=== PATIENT | male | born 1995 | race Caucasian/White ===

== ENCOUNTER 2020-09-17 22:12 | Emergency (ER) | payer BC, SELFPAY ==
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
[2020-09-17 22:23] VITALS: BP 114/65; PULSE 112; RESP 18; TEMP 36.2; O2SAT 98
[2020-09-17] MEDS: Bupivacaine 0.5% Pres-Free 30 ML VIAL (22:43)
[2020-09-17] MEDS: Bupivacaine 0.25% Pres-Free 30 ML VIAL IJ (22:44)
--- NOTE | 2020-09-17 23:11 | DI.RAD_ITS ---
Exam(s) XR KNEE LT 4V AP,LAT,KEN,PAT EXAM: XR KNEE LT 4V AP,LAT,KEN,PAT CLINICAL HISTORY: significant laceration medially. TECHNIQUE: 2D digital imaging was performed. COMPARISON: No exams were available for comparison FINDINGS: Large area of soft tissue avulsion is seen off the medial aspect knee extending down towards the join t. This laceration is deep and appears to reach the level of the medial femoral condyle. There is n o radiopaque foreign body. There appears to be a small amount of increased joint fluid. There is no fracture. No osteochondral defects. No degenerative changes. Bone density is normal. IMPRESSION: Deep medial laceration which extends down to the level of the medial femoral condyle.. Recommend fol low-up MRI to determine amount of involvement of the medial collateral ligament and other significant soft tissue structures as well as possible bone signal abnormality. DATA REPOSITORY: RADIATION DOSE DELIVERED:
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
[2020-09-17] MEDS: Ibuprofen 600 MG TAB (23:47)
[2020-09-17] MEDS: Acetaminophen 500 MG TAB (23:47)
[2020-09-18] MEDS: Cephalexin 500 MG CAP, 4 CAPS/BTL PO (01:02)
== END 2020-09-18 01:15 | disposition home or self-care (01) ==
PROVIDERS: Emergency Provider Physician Assistant
DX: S81.012A Laceration without foreign body, left knee, initial encounter (principal); W40.8XXA Explosion of other specified explosive materials, initial encounter
CPT/HCPCS: 12004; 99281; 73564

== ENCOUNTER 2020-10-10 08:37 | Emergency (ER) | payer BC, SELFPAY ==
--- NOTE | 2020-10-10 08:45 | ED.GENADUL_ITS ---
Discharge Plan Disposition Patient Disposition: HOME Condition: Stable Discharge Details Clinical Impression: Impacted cerumen of left ear Primary Care Provider: Kristina,Local ED Provider: Jaimee Conley Home Meds and New Rx's Prescriptions: No Action No Known Home Meds RF: 0 Discharge Instructions Instructions: Impactaci?n de Cerumen (ED) Additional Instructions: Use the Debrox drops as directed if you develop any further earwax. You can use safety Q-tips to prevent impaction of earwax in the future. You can also try cotton balls instead of Q-tips. Follow up with your primary care doctor in 1 week as needed. Return to the emergency department with any worsening or new concerning symptoms. Discharge Data Discharge Date/Time-TO BE ENTERED AT DEPARTURE: 10/10/20 09:31 Discharge Physician: Jaimee Conley Medical Decision Making 25yo M presents for decreased hearing in his L ear for the past few days. Cerumen impaction noted to L ear canal, but cerumen appears soft. Minimal cerumen in R ear canal but able to view the TM and appears normal. Nurse flushed the L ear with hydrogen peroxide and water with complete removal of cerumen and TM appears normal. Pt feels much better and good to go home. Advised on proper way of cleaning ears and minimizing cerumen impaction. Advised to f/u with the pcp as needed. Medical Records Medical records reviewed: Yes I reviewed the patient's medical records. HPI General Mode of arrival: ambulatory . Date/Time Provider Initiated Documentation: 10/10/20 08:45 . Limitations to Documentation: no limitations . Information obtained by: patient . HPI Narrative: Pt is a 25yo M who presents to the ED w/ a c/o decreased hearing in his L ear for the past few days. He states he cleaned his ears out with a Q tip the other day and feels like he pushed the wax in further. He states he has been using over the counter hydrogen peroxide drops without relief. He denies any ear pain. He denies fever, ear discharge, tinnitus, rhinorrhea, sore throat, headache, or dizziness. Related Data Home Medications Medication Instructions Recorded Confirmed Unknown [No Known Home Meds] 10/10/20 10/10/20 Allergies Allergy/AdvReac Type Severity Reaction Status Date / Time No Known Allergies Allergy Unverified 10/10/20 08:48 General TAMEKA: 4 Review of Systems All systems reviewed & are unremarkable except as noted in HPI and below Constitutional Constitutional: Reports as per HPI, Denies chills and Denies fever(s) Eyes Eyes: Denies blurry vision ENT Ears, Nose, Mouth, and Throat: Denies dizziness, Reports hearing loss (decreased hearing L ear), Denies sore throat and Denies throat swelling Cardiovascular Cardiovascular: Denies chest pain and Denies dyspnea Respiratory Respiratory: Denies cough and Denies dyspnea Gastrointestinal Gastrointestinal: Denies abdominal pain, Denies diarrhea and Denies vomiting Genitourinary Genitourinary: Denies hematuria and Denies dysuria Musculoskeletal Musculoskeletal: Denies back pain and Denies numbness Integumentary/Breasts Skin/Breast: Denies lesions and Denies rash Neurologic Neurologic: Denies dizziness, Denies localized weakness and Denies numbness Allergic/Immunologic Allergic/Immunologic: Denies throat swelling PFSH Social History Smoking/Tobacco Use Status: Never Smoking risk assessment performed?: Yes Alcohol Intake: current Alcohol Intake frequency: a few times a month Alcohol type: beer Drug use: Occasionally Substance use type: marijuana Current gender identity: male Do you feel safe at home: Yes Do you feel safe in your relationship?: Yes Exam Const General: cooperative, healthy appearing and no acute distress HENMT Head: normal to inspection Ears: hearing grossly normal bilaterally, external ears normal, mastoids normal bilaterally and EAC abnormal excessive cerumen on the right (minimal to moderate -- able to see some of TM which appears normal) and on the left (moderate to severe - unable to view TM) General nose exam: external nose normal and nares normal Mouth: oral mucosae normal Eyes General: appearance normal, both eyes and all related structures Neck Neck: normal visual inspection Resp Effort & Inspection: normal respiratory effort and able to speak in complete sentences Cardio Rate: regular rate Skin General skin exam: no rashes or lesions noted Neuro General: patient alert, patient awake and patient oriented x3 Motor: muscle tone normal throughout Extrem General: normal to inspection and full ROM Psych Appearance: grossly normal Affect: normal affect
[2020-10-10 08:47] VITALS: BP 127/68; PULSE 86; RESP 18; TEMP 36.3; O2SAT 98
== END 2020-10-10 09:31 | disposition home or self-care (01) ==
PROVIDERS: Emergency Provider Physician Assistant
DX: H61.22 Impacted cerumen, left ear (principal); H91.92 Unspecified hearing loss, left ear
CPT/HCPCS: 69209; 99282